=== PATIENT | male | born 1960 | race Caucasian/White ===

== ENCOUNTER 2019-12-18 10:06 | Emergency (ER) | payer OTHER, SELFPAY ==
--- NOTE | 2019-12-18 10:09 | ED.UPPEXIN ---
HPI - Extremity Injury (Upper) General Chief Complaint: Extremity Injury, Upper Stated Complaint: Suspects broken left wrist Time Seen by Provider: 12/18/19 10:08 Source: patient and family Mode of arrival: Ambulatory Limitations: no limitations History of Present Illness HPI narrative: 59-year-old male smoker with noncontributory medical history presents with his in the chief complaint of a fall on outstretched wrist yesterday with gradually worsening left wrist pain. He denies any head neck or back pain. He denies any other extremity pain. The primary location of his pain is overlying the proximal 5th metacarpal and carpals. He denies any numbness, tingling or weakness. His pain is worse with motion and improves with rest. MD complaint: injury to: left Onset (ago): hour(s) Other injuries: none Handedness: right Place: outdoors Severity: moderate Relieving factors: immobilization and rest Exacerbating factors: movement of extremity Context: fall and direct blow Associated symptoms: denies other symptoms Treatments prior to arrival: cold therapy and NSAIDS Related Data Home Medications Medication Instructions Recorded Confirmed No Known Home Medications 12/18/19 12/18/19 Allergies Allergy/AdvReac Type Severity Reaction Status Date / Time No Known Drug Allergies Allergy Verified 12/18/19 10:17 Review of Systems Constitutional Constitutional: Denies chills, Denies fatigue, Denies fever(s), Denies frequent falls, Denies lethargy and Denies weakness Eyes Eyes: Denies change in vision, Denies eye discharge, Denies irritation and Denies loss of vision ENT Ears, Nose, Mouth, and Throat: Denies change in voice, Denies dizziness, Denies neck pain, Denies sore throat and Denies throat swelling Cardiovascular Cardiovascular: Denies chest pain, Denies irregular heart rhythm, Denies lightheadedness, Denies palpitations, Denies dyspnea, Denies dyspnea on exertion and Denies orthopnea Respiratory Respiratory: Denies cough, Denies dyspnea, Denies dyspnea on exertion and Denies wheezing Gastrointestinal Gastrointestinal: Denies abdominal pain, Denies change in bowel habits, Denies diarrhea, Denies nausea and Denies vomiting Musculoskeletal Musculoskeletal: Reports arthralgias, Reports joint swelling, Denies neck pain and Denies numbness Integumentary/Breasts Skin/Breast: Denies pruritus, Denies erythema, Denies rash and Denies wounds Neurologic Neurologic: Denies behavioral changes, Denies confusion, Denies dizziness, Denies frequent falls, Denies loss of vision, Denies numbness and Denies weakness Psychiatric Psychiatric: Denies anxiety, Denies behavioral changes, Denies confusion, Denies depression, Denies homicidal ideation and Denies suicidal ideation Endocrine Endocrine: Denies fatigue, Denies flushing and Denies palpitations Hematologic/Lymphatic Hematologic/Lymphatic: Denies easy bruising Allergic/Immunologic Allergic/Immunologic: Denies urticaria, Denies throat swelling and Denies wheezing Patient History Social History Smoking Status: Former smoker Smoking Status: Current some day smoker tobacco type: cigarettes alcohol intake frequency: 0-2 drinks per day Substance Use Type: does not use Exam Narrative Exam Narrative: GEN: AOx3 and in mild distress EYES: Pupils are equal, round, and reactive to light and accommodation. Extraoccular muscles are intact bilaterally. There is no subconjunctival hemorrhage or exudate. CHEST: Lungs are clear to auscultation bilaterally and free of wheezes, rales, or rhonchi. Heart rate is regular rhythm, there are no murmurs, clicks, rubs, or gallops. There is no chest wall tenderness. ABD: Abdomen is soft and nontender. There is no guarding or rebound. Bowel sounds are normal in all 4 quadrants. There is no mass or organomegaly. EXT: Full but painful ROM of L wrist, mainly over distal ulna and medial hand. No obvious swelling or deformity. No numbness tingling or weakness. No pain in anatomic snuff box or pain with axial loading of thumb SKIN: Warm, pink, and dry. No erythema or rash Initial Vital Signs Initial Vital Signs: Vital Signs Temperature 96.7 F L 12/18/19 10:13 Pulse Rate 62 12/18/19 10:13 Respiratory Rate 18 12/18/19 10:13 Blood Pressure 139/81 12/18/19 10:13 Pulse Oximetry 96 12/18/19 10:13 Procedures Orthopedic Splinting/Casting Injury #1: Side: left Upper Extremity Injury Location: wrist Upper Extremity Immobilizer: volar splint Post splinting neuro exam: intact Post splinting vascular exam: intact Placed by: Nursing Course Orders Ordered: ED Orders 12/18/19 10:18 XR wrist LT min 3V Stat Consultations Consultation #1: case and images discussed with application operations engineer ortho (Jensen) she recommends premade velcro wrist splint and follow up. Vital Signs Vital signs: Vital Signs - 8 hr 12/18/19 10:13 12/18/19 11:49 Temperature 96.7 F L Pulse Rate 62 52 L Respiratory Rate 18 16 Blood Pressure 139/81 121/87 Pulse Oximetry 96 97 MDM - Extremity Injury (Upper) Imaging Data Extremity x-ray #1: Radiologist's Impression: Chart Viewer Diagnostics DATE TYPE STATUS REF RANGE/AUTHOR Hx 12/18/19 10:18 CasaJulian Jake Dan 59, M0 1960 [facility] ER, Main ED 182.88cm 100.698kg BMI: 30.1kg/m? Extremity Injury, Upper Search Chart No Data to Display ONSET Today 11:49 Jake Dan 59 M 1960 [place] [address] XRay Report Signed Patient: Jake Dan MMR#: [id number] : 1960Acct:[id number] Age/Sex: 59 / MDate of Service: 12/18/19 Loc: ED Accession Number: [id number] Procedure: XR wrist LT min 3V Ordering Provider: Kedar Mcgregor D.O. PROCEDURE: XR WRIST LT MIN 3V INDICATIONS: fell on outstretched arm TECHNIQUE: 4 views of the wrist were acquired. COMPARISON: None. FINDINGS: Bones: Question triquetral fracture seen on lateral view. No other fractures or dislocations. No suspicious bony lesions. Scaphoid view: Scaphoid intact. Soft tissues: No suspicious soft tissue calcifications. IMPRESSION: Question Margaret which will fracture. Suggest clinical correlation. Dictated by: Julian Cormier M.D. on 12/18/2019 at 9:38 Approved by: Julian Cormier M.D. on 12/18/2019 at 9:40 Discharge Plan Departure Patient Disposition: Home Clinical Impression: Fracture of triquetral bone of left wrist Qualifiers: Encounter type: initial encounter Fracture type: closed Fracture alignment: nondisplaced Qualified Code(s): S62.115A - Nondisplaced fracture of triquetrum [cuneiform] bone, left wrist, initial encounter for closed fracture Discharge Date/Time: 12/18/19 11:49 Instructions: DI for Wrist Fracture Activity Restrictions/Additional Instructions: *You have been diagnosed with [wrist pain with possible triquetral fracture] *What to do: *Take medications as directed *Follow up with [facility], call for an appointment. Let them know you were seen in the Emergency Department and that we ask that you be seen in follow up *Return to ER if you should have any new, worsening or concerning symptoms Splint Care: Keep splint clean and dry. Elevated affected body part to decrease swelling. OK to use ice pack on the affected body part. Use for 15-20 minutes each time, for 5-6x per day. If you develop worsening pain, numbness, tingling, discoloration of the affected body part, loosen the splint by loosening the OLEG wrap, and either see your doctor for an urgent re-assessment, or return to the Emergency Department. Return to the Emergency Department for any new or worsening symptoms. Prescriptions: No Action No Known Home Medications RF: 0 Referrals: Catherine Styles MD [Physician] -
[2019-12-18 10:13] VITALS: BP 139/81; PULSE 62; RESP 18; TEMP 35.9; O2SAT 96; BMI 30.1
--- NOTE | 2019-12-18 10:18 | DI.RAD.S_ITS ---
PROCEDURE: XR WRIST LT MIN 3V INDICATIONS: fell on outstretched arm TECHNIQUE: 4 views of the wrist were acquired. COMPARISON: None. FINDINGS: Bones: Question triquetral fracture seen on lateral view. No other fractures or dislocations. No suspicious bony lesions. Scaphoid view: Scaphoid intact. Soft tissues: No suspicious soft tissue calcifications. IMPRESSION: Question Margaret which will fracture. Suggest clinical correlation. Dictated by: Julian Cormier M.D. on 12/18/2019 at 9:38 Approved by: Julian Cormier M.D. on 12/18/2019 at 9:40
[2019-12-18 11:49] VITALS: BP 121/87; PULSE 52; RESP 16; O2SAT 97
== END 2019-12-18 11:49 | disposition home or self-care (01) ==
PROVIDERS: Emergency Provider Emergency Medicine
DX: S62.115A Nondisplaced fracture of triquetrum [cuneiform] bone, left wrist, initial encounter for closed fracture (principal); W19.XXXA Unspecified fall, initial encounter
CPT/HCPCS: 73110; 99282; 99283

== ENCOUNTER → 2021-07-06 08:09 | Outpatient (CLI) | payer OTHER, SELFPAY ==
[2021-07-06 08:48] LABS: Alanine Aminotransferase 41 IU/L (<50); Albumin 4.7 g/dL (3.5-5.0); Albumin Globulin Ratio 1.6 (1.0-2.8); Alkaline Phosphatase 66 U/L (38-126); Aspartate Aminotransferase 32 IU/L (17-59); BUN Creatinine Ratio 19.4 (6-22); Bilirubin Total 0.8 mg/dL (0.2-1.3); Blood Urea Nitrogen 19 mg/dL (9-20); Calcium 9.3 mg/dL (8.4-10.2); Carbon Dioxide 26 mmol/L (22-32); Chloride 107 mmol/L (98-107); Cholesterol 205 mg/dL (140-199); Estimated Glomerular Filt Rate > 60.0 mL/min (>60); Glucose 94 mg/dL (70-100); HDL Cholesterol 41 mg/dL (40-60); HEMOLYSIS 16 (0-50); LDL Cholesterol Calculated 139 mg/dL (<100); Potassium 4.4 mmol/L (3.4-5.1); Sodium 139 mmol/L (137-145); Total Protein 7.7 g/dL (6.3-8.2); Triglycerides 126 mg/dL (35-150)
[2021-07-06 09:17] LABS: Prostate Specific Antigen Scrn 0.999 ng/mL (0.1-4.0)
== END ==
PROVIDERS: PCP Internal Medicine; Referring Provider Internal Medicine; Visit Provider Internal Medicine
DX: Z00.00 Encounter for general adult medical examination without abnormal findings (principal); Z13.6 Encounter for screening for cardiovascular disorders; Z13.220 Encounter for screening for lipoid disorders; Z12.5 Encounter for screening for malignant neoplasm of prostate
CPT/HCPCS: 36415; 80053; 80061; G0103

== ENCOUNTER → 2023-09-09 06:56 | Outpatient (CLI) | payer OTHER, SELFPAY ==
[2023-09-09 08:21] LABS: Add Manual Diff / Slide Review NO; Basophils Absolute Auto 0 /uL (0-100); Basophils Percent Auto 0.8 % (0-2); Eosinophils Absolute Auto 100 /uL (0-450); Eosinophils Percent Auto 1.6 % (2-4); Hemoglobin 15.4 g/dL (13.5-17.5); Lymphocytes Absolute Auto 1400 /uL (1100-4500); Lymphocytes Percent Auto 29.5 % (25-40); Mean Corpuscular HGB Conc 34.2 % (30-36); Mean Corpuscular Volume 90.4 fL (80-100); Monocytes Absolute Auto 400 /uL (0-900); Monocytes Percent Auto 8.9 % (3-14); Neutrophils Absolute Auto 2800 /uL (1500-7000); Neutrophils Percent Auto 59.2 % (50-75); Platelet Count 147 X10^3/uL (150-400); Red Blood Cell Count 4.98 X10^6/uL (4.5-5.9); Red Cell Distribution Width 13.5 % (11.6-14.8); White Blood Cell Count 4.8 X10^3/uL (4.5-11.0)
[2023-09-09 08:50] LABS: Alanine Aminotransferase 30 IU/L (<50); Albumin 4.6 g/dL (3.5-5.0); Albumin Globulin Ratio 1.8 (1.0-2.8); Alkaline Phosphatase 81 U/L (38-126); Aspartate Aminotransferase 35 IU/L (17-59); BUN Creatinine Ratio 21.1 (6-22); Blood Urea Nitrogen 20 mg/dL (9-20); Calcium 9.3 mg/dL (8.4-10.2); Carbon Dioxide 25 mmol/L (22-32); Chloride 106 mmol/L (98-107); Cholesterol 202 mg/dL (140-199); Estimated Glomerular Filt Rate > 60 mL/min (>60); Globulin 2.6 g/dL (1.7-4.1); Glucose 94 mg/dL (80-110); HDL Cholesterol 53 mg/dL (40-60); HEMOLYSIS < 15 (0-50); LDL Cholesterol Calculated 131 mg/dL (<100); Potassium 4.4 mmol/L (3.4-5.1); Sodium 138 mmol/L (137-145); Total Protein 7.2 g/dL (6.3-8.2); Triglycerides 91 mg/dL (35-150)
[2023-09-09 09:13] LABS: Prostate Specific Antigen Scrn 1.01 ng/mL (0.1-4.0)
== END ==
LOC: LAB 06:56
PROVIDERS: PCP Internal Medicine; Referring Provider Internal Medicine; Visit Provider Internal Medicine
DX: D64.9 Anemia, unspecified (principal); Z13.6 Encounter for screening for cardiovascular disorders; Z13.1 Encounter for screening for diabetes mellitus; Z12.5 Encounter for screening for malignant neoplasm of prostate; Z13.220 Encounter for screening for lipoid disorders
CPT/HCPCS: 36415; 80053; 80061; 85025; G0103

== ENCOUNTER 2023-12-04 08:29 | Day surgery (SDC) | payer OTHER, SELFPAY ==
--- NOTE | 2023-12-04 | PATH_ITS ---
[facility] Accession Number: [id number] No. of containers..02 Tissue . 01 Material submitted: . PART A: colon - SPLENIC FLEXURE POLYP PART B: colon - SIGMOID COLON POLYP 40 CM . 01 Diagnosis: Part A: SPLENIC FLEXURE POLYP: Tubular adenoma. . Part B: SIGMOID COLON POLYP 40 CM: Tubulovillous adenoma. No high-grade dysplasia or malignancy identified. See comment. . Specimen Comments: There are features of trauma/prolapse of the polyp. Among the sample there is one fragment of nonadenomatous colonic mucosa, suggesting that the polyp may be completely excised. Correlation with the clinical endoscopic appearance before and after polypectomy is needed for further evaluation. [facility] 12/09/2023 1403 Local . 01 Electronically signed: . Alonzo Mora MD, Pathologist NPI- [id number] . 01 Gross description: . A. Received in formalin, labeled with two patient identifiers and splenic flexure, are three viveros soft tissue fragments measuring 0.6 -1.1 cm in greatest dimension. Submitted in cassette A1. . B. Received in formalin, labeled with two patient identifiers and sigmoid colon, are three viveros to brown soft tissue fragments, the largest measuring 2.5 x 1.7 x 1.9 cm. The fragment is inked blue, serially sectioned, and submitted entirely in cassettes B1-B4. The second fragment measures 1.1 x 0.7 x 0.8 cm. The fragment is inked blue, serially sectioned, and submitted entirely in in cassette B5. The last fragment measures 0.9 x 0.8 x 0.8 cm. The fragment is inked blue, trisected, and submitted entirely in cassette B6. ([id number]) /TWAN 12/09/2023 1403 Local . 01 Pathologist provided ICD-10: D12.3, D12.5 . 01 CPT . 026265, 764912 Specimen Comment: A courtesy copy of this report has been sent to [phone] Performed at: [address] [id number] MD Alonzo Mora MD Phone: [phone]
[2023-12-04 09:07] VITALS: BP 136/76; PULSE 51; RESP 16; TEMP 36.2; O2SAT 98
[2023-12-04] MEDS: LACTATED RINGERS 1,000 ML 42 ML IV (09:14)
--- NOTE | 2023-12-04 09:54 | PM.HP.1 ---
History of Present Illness History of Present Illness Date Patient Seen: 12/04/23 Time Patient Seen: 09:54 Chief complaint: [facility] Narrative: Colon cancer screening, last scope was 11 years ago. No current symptoms. PFSH Medical History COVID-19 Surgical History No pertinent past surgical history Family History Father Prostate cancer Social History Smoking Status: Never smoker Meds Home Medications and Allergies Allergies Allergy/AdvReac Type Severity Reaction Status Date / Time No Known Drug Allergies Allergy Verified 12/04/23 09:03 Review of Systems Review of Systems ROS: Yes All systems reviewed with the patient and are negative except as otherwise documented Exam Vital Signs (past 8 hours): - 12/04/23 09:07 Temperature 97.1 F L Pulse Rate 51 L Respiratory Rate 16 Blood Pressure 136/76 Pulse Oximetry 98 Oxygen Delivery Method Room Air Oxygen Delivery Method Room Air Const General: cooperative, healthy appearing and comfortable Nutritional Appearance: average body habitus HENMT Head: normocephalic and atraumatic Ears: hearing grossly normal bilaterally Eyes General: appearance normal, both eyes and all related structures Periorbital: periorbital findings normal Sclera: sclerae normal Neck Neck: trachea midline Resp Effort & Inspection: normal respiratory effort and able to speak in complete sentences Cardio Rate: regular rate Rhythm: regular rhythm GI Palpation: soft and No tender Skin General: elasticity normal and turgor normal Neuro General: patient alert, patient awake and patient oriented x3 Cognition: normal cognition Psych Mental Status: mental status grossly normal Judgment: judgment good Assessment & Plan Assessment & Plan narrative: colon cancer screening using colonoscopy with anesthesia. Time-Based Coding :: [TOTAL MINUTES] spent with patient and on the chart (including review of chart, obtaining history, exam, reviewing outside data, placing orders, documenting exam and treatment plan, and counseling patient) on [DATE].
--- NOTE | 2023-12-04 10:26 | PM.OP.COLON ---
Operative Date/Time/Diagnoses Date of procedure: 12/04/23 Time of procedure: 10:28 Pre-op diagnosis: Colon cancer screening Post-op diagnosis: same Procedure & Clinicians Study performed: Colonoscopy with hot snare polypectomy Same procedure as scheduled: Yes Indications: Colon cancer screening Surgeon: Mary Chappell Procedure Notes Procedure in detail: Preop diagnosis: Colon cancer screening Postop diagnosis: Same Operative procedure: Colonoscopy with hot snare polypectomy Surgeon: Marissa Chappell MD Anesthetic: Propofol Findings: Small diverticuli within the descending colon. Polyp at the splenic flexure approximately 5 mm. Second polyp on a long stalk at 40 cm in the descending colon measuring 2 cm. Procedure: Patient placed in a lateral position. Rectal exam performed showing normal tone no masses. Colonoscope inserted into the rectum and advanced to ileocecal valve with minimal difficulty. Insufflation extraction of the scope and the above findings. Retroflex was included in the rectum. Impression: Small diverticuli of the descending colon. 4 mm polyp at the splenic flexure and a 2 cm polyp in the descending colon at 40 cm. The larger polyp was on a long stalk so I have great confidence that the entire polyp is removed including a margin. Plan: Repeat colonoscopy in 5 years unless otherwise indicated by change in clinical condition. Findings: polyp(s) (splenic flexure 4mm polyp. At 40cm in sigmoid a 2cm polyp on stalk) Specimen(s): other (2 polyps) Complications: none Post-procedure Recommendations: Colonoscopy in 5 years Follow up: as needed Disposition: PACU
[2023-12-04 10:28] VITALS: BP 109/67; PULSE 47; RESP 20; TEMP 37.1; O2SAT 95
[2023-12-04 10:33] VITALS: BP 115/69; PULSE 45; RESP 15; O2SAT 93
[2023-12-04 10:40] VITALS: BP 112/68; PULSE 51; RESP 12; O2SAT 97
[2023-12-04 10:45] VITALS: BP 117/70; PULSE 45; RESP 20; TEMP 36.7; O2SAT 96
== END 2023-12-04 10:57 | disposition home or self-care (01) ==
PROVIDERS: PCP Internal Medicine; Referring Provider Surgery; Visit Provider Surgery
PROC: 0DJD8ZZ Inspection of Lower Intestinal Tract, Via Natural or Artificial Opening Endoscopic (ICD-10-PCS; CPT 45378; principal; 2023-12-04 09:45)
DX: Z12.11 Encounter for screening for malignant neoplasm of colon (principal); K57.30 Diverticulosis of large intestine without perforation or abscess without bleeding; K91.840 Postprocedural hemorrhage of a digestive system organ or structure following a digestive system procedure; R55 Syncope and collapse; R00.1 Bradycardia, unspecified
CPT/HCPCS: 45385; 80053; 83690; 85014; 85018; 85025; 85610; 85730; 86850; 86900; 86901; 93005; 99284; J2704

== ENCOUNTER 2023-12-04 21:06 | Observation (INO) | payer OTHER, SELFPAY ==
[2023-12-04] VITALS (19 sets, daily range): BP systolic 101–114; BP diastolic 55–70; PULSE 41–54; RESP 12–19; TEMP 35.7; O2SAT 94–98; BMI 32.5
--- NOTE | 2023-12-04 21:20 | ED.GENADULT ---
HPI - General Adult General Chief complaint: GI Bleed Stated complaint: LoC; Bloodloss after earlier colonoscopy Time Seen by Provider: 12/04/23 21:16 Source: patient and family Mode of arrival: EMS Limitations: no limitations History of Present Illness HPI narrative: Patient is a 63-year-old male. States that earlier today he underwent a colonoscopy. According to the medical record he would 2 polyp biopsies. He states that he was at home this evening. Had a couple episodes of bright red blood per rectum. No abdominal pain. No chest pain. No shortness of breath. Afterwards he had an episode where he became very lightheaded. Potentially even had a syncopal episode after going to the bathroom. Patient then became diaphoretic. Denies any urinary symptoms. He has not on blood thinners. Takes no medications on a regular basis. Related Data Allergies Allergy/AdvReac Type Severity Reaction Status Date / Time No Known Drug Allergies Allergy Verified 12/04/23 09:03 Review of Systems Review of Systems ROS Unobtainable: All systems reviewed & are unremarkable except as noted in HPI and below Patient History Medical History COVID-19 Surgical History No pertinent past surgical history Family History Father Prostate cancer Social History Smoking Status: Never smoker Smoking Status: Never smoker tobacco type: cigarettes alcohol intake frequency: 0-2 drinks per day Substance Use Type: does not use Exam Initial Vital Signs Initial Vital Signs: Vital Signs Temperature 96.3 F L 12/04/23 21:10 Pulse Rate 47 L 12/04/23 21:10 Respiratory Rate 14 12/04/23 21:10 Blood Pressure 108/63 12/04/23 21:10 Pulse Oximetry 96 12/04/23 21:10 Oxygen Delivery Method Room Air 12/04/23 21:10 Const General: cooperative and diaphoretic HENMT Head: normal to inspection and normocephalic Resp Effort & Inspection: normal respiratory effort Auscultation: clear to auscultation bilaterally Cardio Rate: bradycardic Rhythm: regular rhythm GI Inspection: normal to inspection and non-distended Palpation: soft and No tender Skin General: no rashes or lesions noted Neuro General: patient alert, patient awake, patient oriented x3 and moves all extremities Extrem General: capillary refill normal Scores GCS Avni coma scale eye opening: Spontaneous Avni coma scale verbal response: Orientated Avni coma scale motor response: Obey commands [place] coma scale total score: 15 Course Orders Ordered: ED Orders 12/04/23 21:17 EKG-12 Lead Stat 12/04/23 21:30 Complete Blood Count AUTO DIFF Stat 12/04/23 21:36 Comprehensive Metabolic Panel Stat Lipase Stat PTT Partial Thromboplastin Cesar Stat Prothrombin Time INR Stat Type and Screen Stat 12/04/23 23:40 Hemoglobin and Hematocrit Stat 12/05/23 01:05 Education, smoking cessation ONGOING 12/05/23 01:15 Complete Blood Count AUTO DIFF Q6H 12/05/23 07:15 Complete Blood Count AUTO DIFF Q6H 12/05/23 13:15 Complete Blood Count AUTO DIFF Q6H 12/05/23 19:15 Complete Blood Count AUTO DIFF Q6H Acetaminophen (Acetaminophen 325 Mg Tablet) 650 mg PO Q6H PRN PRN Reason: Fever/Mild Pain (1-3) Sodium Chloride (Normal Saline 0.9%) 1,000 mls @ 100 mls/hr IV CONT FRANCISCA Last Admin: 12/05/23 01:04 Dose: 100 mls/hr Documented By: CATA Lactated Ringer's (Lactated Ringers) 1,000 mls @ 100 mls/hr IV CONT FRANCISCA Ibuprofen (Ibuprofen 600 Mg Tablet) 600 mg PO Q6H PRN PRN Reason: Fever/Mild Pain (1-3) Naloxone HCl (Naloxone 0.4 Mg/Ml Vial) 0.2 mg IV Q2MIN PRN PRN Reason: Opiate Reversal Discontinued Medications Sodium Chloride (Normal Saline 0.9%) 1,000 mls @ 1,000 mls/hr IV BOLUS ONE Stop: 12/04/23 22:15 Last Infusion: 12/04/23 23:19 Dose: Infused Documented By: Admin: 12/04/23 21:50 Dose: 1,000 mls/hr Documented By: KELSIE Vital Signs Vital signs: Vital Signs - 8 hr 12/04/23 21:10 12/04/23 21:16 12/04/23 21:21 Temperature 96.3 F L Pulse Rate 47 L 42 L Respiratory Rate 14 Blood Pressure 108/63 105/70 Pulse Oximetry 96 96 Oxygen Delivery Method Room Air 12/04/23 21:21 12/04/23 21:29 12/04/23 21:29 Temperature Pulse Rate 41 L 42 L Respiratory Rate 12 13 Blood Pressure 101/67 Pulse Oximetry 98 97 Oxygen Delivery Method 12/04/23 21:30 12/04/23 21:30 12/04/23 21:40 Temperature Pulse Rate 41 L Respiratory Rate 12 Blood Pressure 102/62 107/66 Pulse Oximetry 97 Oxygen Delivery Method 12/04/23 21:40 12/04/23 21:50 12/04/23 21:50 Temperature Pulse Rate 43 L 43 L Respiratory Rate 17 16 Blood Pressure 103/64 Pulse Oximetry 96 97 Oxygen Delivery Method 12/04/23 22:00 12/04/23 22:00 12/04/23 22:10 Temperature Pulse Rate 45 L Respiratory Rate 15 Blood Pressure 107/67 111/62 Pulse Oximetry 98 Oxygen Delivery Method Room Air 12/04/23 22:10 12/04/23 22:20 12/04/23 22:20 Temperature Pulse Rate 44 L 46 L Respiratory Rate 12 17 Blood Pressure 111/63 Pulse Oximetry 98 94 Oxygen Delivery Method Room Air 12/04/23 22:30 12/04/23 22:30 12/04/23 22:40 Temperature Pulse Rate 47 L Respiratory Rate 17 Blood Pressure 102/55 L 104/64 Pulse Oximetry 96 Oxygen Delivery Method 12/04/23 22:40 12/04/23 22:50 12/04/23 22:50 Temperature Pulse Rate 48 L 48 L Respiratory Rate 18 16 Blood Pressure 114/63 Pulse Oximetry 96 95 Oxygen Delivery Method 12/04/23 23:00 12/04/23 23:00 12/04/23 23:10 Temperature Pulse Rate 47 L 54 L Respiratory Rate 14 19 Blood Pressure 112/61 Pulse Oximetry 95 94 Oxygen Delivery Method 12/04/23 23:10 12/04/23 23:20 12/04/23 23:20 Temperature Pulse Rate 48 L Respiratory Rate 18 Blood Pressure 109/59 L 113/58 L Pulse Oximetry 95 Oxygen Delivery Method 12/04/23 23:30 12/04/23 23:30 12/04/23 23:40 Temperature Pulse Rate 48 L Respiratory Rate 15 Blood Pressure 113/61 112/58 L Pulse Oximetry 96 Oxygen Delivery Method 12/04/23 23:40 12/04/23 23:50 12/04/23 23:50 Temperature Pulse Rate 47 L 48 L Respiratory Rate 15 16 Blood Pressure 110/56 L Pulse Oximetry 96 95 Oxygen Delivery Method 12/05/23 00:00 12/05/23 00:00 12/05/23 00:01 Temperature Pulse Rate 50 L 48 L Respiratory Rate 17 19 Blood Pressure 92/53 L Pulse Oximetry 96 96 Oxygen Delivery Method 12/05/23 00:01 12/05/23 00:10 12/05/23 00:10 Temperature Pulse Rate 47 L Respiratory Rate 15 Blood Pressure 93/54 L 95/59 L Pulse Oximetry 96 Oxygen Delivery Method 12/05/23 00:20 12/05/23 00:20 12/05/23 01:00 Temperature Pulse Rate 49 L 42 L Respiratory Rate 14 15 Blood Pressure 95/58 L 122/60 Pulse Oximetry 97 93 Oxygen Delivery Method Medical Decision Making Medical Records Medical records reviewed: Yes I reviewed the patient's medical records. Lab Data Lab results reviewed: Yes I reviewed the patient's lab results. 12/04/23 23:40 12/04/23 21:36 Labs: Lab Results 12/04/23 12/04/23 12/04/23 Range/Units 21:30 21:36 23:40 WBC 5.0 (4.5-11.0) X10^3/uL RBC 4.07 L (4.5-5.9) X10^6/uL Hgb 12.6 L 11.5 L (13.5-17.5) g/dL Hct 37.6 L 33.5 L (41-53) % MCV 92.4 (80-100) fL MCH 31.0 (26-34) PG MCHC 33.6 (30-36) % RDW 13.7 (11.6-14.8) % Plt Count 141 L (150-400) X10^3/uL Neut % (Auto) 52.4 (50-75) % Lymph % (Auto) 37.0 (25-40) % [place] % (Auto) 7.9 (3-14) % Eos % (Auto) 1.8 L (2-4) % Baso % (Auto) 0.9 (0-2) % Neut # (Auto) 2600 (2758-3623) /uL Lymph # (Auto) 1900 (5902-9239) /uL [place] # (Auto) 400 (0-900) /uL Eos # (Auto) 100 (0-450) /uL Baso # (Auto) 0 (0-100) /uL PT 11.9 (9.4-12.5) SECONDS INR 1.0 (0.9-1.3) APTT 28 (25.1-36.5) SECONDS Sodium 133 L (137-145) mmol/L Potassium 3.7 (3.4-5.1) mmol/L Chloride 104 (98-107) mmol/L Carbon Dioxide 21 L (22-32) mmol/L BUN 21 H (9-20) mg/dL Creatinine 1.07 (0.66-1.25) mg/dL Estimated GFR > 60 (>60) mL/min BUN/Creatinine Ratio 19.6 (6-22) Glucose 131 H (80-110) mg/dL Calcium 8.4 (8.4-10.2) mg/dL Total Bilirubin 0.6 (0.2-1.3) mg/dL AST 27 (17-59) IU/L ALT 28 (<50) IU/L Alkaline Phosphatase 67 (38-126) U/L Total Protein 6.5 (6.3-8.2) g/dL Albumin 3.8 (3.5-5.0) g/dL Globulin 2.7 (1.7-4.1) g/dL Albumin/Globulin Ratio 1.4 (1.0-2.8) Lipase 53 (23-300) U/L Blood Type O Positive Antibody Screen Negative ECG Data Attestation: I personally reviewed and interpreted this ECG as follows: Interpretation: Sinus bradycardia Ventricular rate of 43 Normal QRS Normal QTC No ST T wave changes MDM Narrative Medical decision making narrative: Patient is bradycardic but he states that he was always bradycardic specifically with resting. His heart rate is normally in the 40s to low 50s. He denies any abdominal pain. No chest pain or shortness of breath. Initial H&H is relatively unremarkable. He did receive some fluids in his repeat H and H of somewhat lower but he has had no repeat bowel movements here in the ER. He stated that he was feeling much better than what he did earlier today. He did get somewhat lightheaded when he stood up next to the bed but this resolved very quickly. Initial plan was to discharge the patient home. Patient was actually discharged however he was using the restroom prior to leaving the emergency department when he had another syncopal episode. Patient remains bradycardic. Suspect that his symptoms are related to his prior surgeries/blood loss. He was typed and screened. Discussed the case with Dr. Chappell who is on-call for General surgery who is also the patient's provider who did the colonoscopy earlier today. Plan will be is to admit for observation. Discussed the need for admission with the patient. Both he and his expressed understanding and agreement with plan. Discharge Plan Departure Patient Disposition: Admitted As Inpatient Clinical Impression: Rectal bleeding Admit Date/Time: 12/05/23 01:17 Admit Provider: Mary Chappell
[2023-12-04 21:39] LABS: Add Manual Diff / Slide Review NO; Basophils Absolute Auto 0 /uL (0-100); Basophils Percent Auto 0.9 % (0-2); Eosinophils Absolute Auto 100 /uL (0-450); Eosinophils Percent Auto 1.8 % (2-4); Hematocrit 37.6 % (41-53); Hemoglobin 12.6 g/dL (13.5-17.5); Lymphocytes Absolute Auto 1900 /uL (1100-4500); Mean Corpuscular HGB Conc 33.6 % (30-36); Mean Corpuscular Volume 92.4 fL (80-100); Monocytes Absolute Auto 400 /uL (0-900); Monocytes Percent Auto 7.9 % (3-14); Neutrophils Absolute Auto 2600 /uL (1500-7000); Neutrophils Percent Auto 52.4 % (50-75); Platelet Count 141 X10^3/uL (150-400); Red Blood Cell Count 4.07 X10^6/uL (4.5-5.9); Red Cell Distribution Width 13.7 % (11.6-14.8)
[2023-12-04] MEDS: SODIUM CHLORIDE 0.9% 1,000 ML 1000 ML IV (21:50)
[2023-12-04 21:54] LABS: Prothrombin Time 11.9 SECONDS (9.4-12.5)
[2023-12-04 21:57] LABS: PTT Partial Thromboplastin Tim 28 SECONDS (25.1-36.5)
[2023-12-04 21:58] LABS: Alanine Aminotransferase 28 IU/L (<50); Albumin 3.8 g/dL (3.5-5.0); Albumin Globulin Ratio 1.4 (1.0-2.8); Alkaline Phosphatase 67 U/L (38-126); Aspartate Aminotransferase 27 IU/L (17-59); BUN Creatinine Ratio 19.6 (6-22); Bilirubin Total 0.6 mg/dL (0.2-1.3); Blood Urea Nitrogen 21 mg/dL (9-20); Calcium 8.4 mg/dL (8.4-10.2); Carbon Dioxide 21 mmol/L (22-32); Chloride 104 mmol/L (98-107); Estimated Glomerular Filt Rate > 60 mL/min (>60); Globulin 2.7 g/dL (1.7-4.1); Glucose 131 mg/dL (80-110); HEMOLYSIS < 15 (0-50); Lipase 53 U/L (23-300); Potassium 3.7 mmol/L (3.4-5.1); Sodium 133 mmol/L (137-145); Total Protein 6.5 g/dL (6.3-8.2)
--- NOTE | 2023-12-04 22:08 | EKG_ITS ---
[facility] [address] [address] Test Date: 2023-12-04 Pat Name: Jake Dan Department: [facility] Room: Gender: Male Configuration Management Analyst: : 1960 Requested By: Order Number: [id number] Reading MD: Angel Santiago MD Measurements Intervals [place] Rate: 43 P: 41 NM: 186 QRS: 18 QRSD: 90 T: 27 QT: 472 QTc: 398 Interpretive Statements Marked sinus bradycardia Electronically Signed On 12-09-2023 8:32:22 PDT by Angel Santiago MD
[2023-12-04 23:44] LABS: Hematocrit 33.5 % (41-53); Hemoglobin 11.5 g/dL (13.5-17.5)
[2023-12-05] VITALS (11 sets, daily range): BP systolic 92–128; BP diastolic 53–64; PULSE 42–74; RESP 14–19; TEMP 35.9–36.6; O2SAT 92–98; BMI 32.5
--- NOTE | 2023-12-05 00:40 | PC.NURSE ---
Pt had been discharged from the department. Pt went to bathroom before exiting the department. in bathroom, pt became pale and diaphoretic, pt hadn't even gotten to the toilet but was sitting in a wheel chair. pt started dry heaving and then appeared to have passed out. Eyes rolled back into head and pt did not respond, when eyes went straight, pt with no focus to eyes. Moved back to room, not allowing him to use restroom.
[2023-12-05] MEDS: SODIUM CHLORIDE 0.9% 1,000 ML 100 ML IV (01:04)
[2023-12-05 02:29] LABS: Add Manual Diff / Slide Review NO; Basophils Absolute Auto 0 /uL (0-100); Basophils Percent Auto 0.7 % (0-2); Eosinophils Absolute Auto 0 /uL (0-450); Eosinophils Percent Auto 0.6 % (2-4); Hematocrit 32.8 % (41-53); Hemoglobin 11.3 g/dL (13.5-17.5); Lymphocytes Absolute Auto 900 /uL (1100-4500); Lymphocytes Percent Auto 16.3 % (25-40); Mean Corpuscular HGB Conc 34.5 % (30-36); Mean Corpuscular Hemoglobin 31.3 PG (26-34); Mean Corpuscular Volume 90.6 fL (80-100); Monocytes Absolute Auto 200 /uL (0-900); Monocytes Percent Auto 4.3 % (3-14); Neutrophils Absolute Auto 4300 /uL (1500-7000); Neutrophils Percent Auto 78.1 % (50-75); Platelet Count 119 X10^3/uL (150-400); Red Blood Cell Count 3.62 X10^6/uL (4.5-5.9); Red Cell Distribution Width 13.7 % (11.6-14.8); White Blood Cell Count 5.5 X10^3/uL (4.5-11.0)
[2023-12-05] MEDS: LACTATED RINGERS 1,000 ML 100 ML IV (02:35)
[2023-12-05 07:38] LABS: Add Manual Diff / Slide Review NO; Basophils Absolute Auto 0 /uL (0-100); Basophils Percent Auto 0.7 % (0-2); Eosinophils Absolute Auto 0 /uL (0-450); Hematocrit 32.4 % (41-53); Hemoglobin 11.2 g/dL (13.5-17.5); Lymphocytes Absolute Auto 1200 /uL (1100-4500); Lymphocytes Percent Auto 24.4 % (25-40); Mean Corpuscular HGB Conc 34.5 % (30-36); Mean Corpuscular Hemoglobin 31.3 PG (26-34); Mean Corpuscular Volume 90.7 fL (80-100); Monocytes Absolute Auto 300 /uL (0-900); Monocytes Percent Auto 6.6 % (3-14); Neutrophils Absolute Auto 3200 /uL (1500-7000); Neutrophils Percent Auto 67.3 % (50-75); Platelet Count 122 X10^3/uL (150-400); Red Blood Cell Count 3.57 X10^6/uL (4.5-5.9); Red Cell Distribution Width 13.6 % (11.6-14.8); White Blood Cell Count 4.7 X10^3/uL (4.5-11.0)
--- NOTE | 2023-12-05 12:33 | P.DS_ITS ---
History of Present Illness History of Present Illness Chief complaint: LoC; Bloodloss after earlier colonoscopy Discharge Providers Provider Date of admission: 12/05/23 01:17 Discharge Date: 12/05/23 Primary care physician: Angel Santiago MD Discharge provider: Sorin Qureshi MD Summary Hospital Course Discharge Diagnosis: The patient was admitted for hematochezia following a colonoscopy. His hemoglobin dropped from 12.6 to 11.5 then remained stable over the next 12 hours. On his second hospital day he was able to walk without dizziness or shortness of breath. He was discharged home. Exam Vital Signs (past 8 hours): - 12/05/23 05:05 12/05/23 08:00 12/05/23 12:00 Temperature 96.9 F L 97.4 F L 97.8 F Pulse Rate 48 L 55 L 74 Respiratory Rate 16 16 16 Blood Pressure 105/54 L 111/61 109/62 Pulse Oximetry 92 98 97 Oxygen Flow Rate 0 Oxygen Delivery Method Room Air Oxygen Flow Rate 0 Objective Labs 12/05/23 07:30 12/04/23 21:36 Labs: Laboratory Results - last 24 hr 12/04/23 12/04/23 12/04/23 21:30 21:36 23:40 WBC 5.0 RBC 4.07 L Hgb 12.6 L 11.5 L Hct 37.6 L 33.5 L MCV 92.4 MCH 31.0 MCHC 33.6 RDW 13.7 Plt Count 141 L Neut % (Auto) 52.4 Lymph % (Auto) 37.0 [place] % (Auto) 7.9 Eos % (Auto) 1.8 L Baso % (Auto) 0.9 Neut # (Auto) 2600 Lymph # (Auto) 1900 [place] # (Auto) 400 Eos # (Auto) 100 Baso # (Auto) 0 PT 11.9 INR 1.0 APTT 28 Sodium 133 L Potassium 3.7 Chloride 104 Carbon Dioxide 21 L BUN 21 H Creatinine 1.07 Estimated GFR > 60 BUN/Creatinine Ratio 19.6 Glucose 131 H Calcium 8.4 Total Bilirubin 0.6 AST 27 ALT 28 Alkaline Phosphatase 67 Total Protein 6.5 Albumin 3.8 Globulin 2.7 Albumin/Globulin Ratio 1.4 Lipase 53 Blood Type O Positive Antibody Screen Negative 12/05/23 12/05/23 02:20 07:30 WBC 5.5 4.7 RBC 3.62 L 3.57 L Hgb 11.3 L 11.2 L Hct 32.8 L 32.4 L MCV 90.6 90.7 MCH 31.3 31.3 MCHC 34.5 34.5 RDW 13.7 13.6 Plt Count 119 L 122 L Neut % (Auto) 78.1 H D 67.3 Lymph % (Auto) 16.3 L D 24.4 L [place] % (Auto) 4.3 6.6 Eos % (Auto) 0.6 L 1.0 L Baso % (Auto) 0.7 0.7 Neut # (Auto) 4300 3200 Lymph # (Auto) 900 L 1200 [place] # (Auto) 200 300 Eos # (Auto) 0 0 Baso # (Auto) 0 0 PT INR APTT Sodium Potassium Chloride Carbon Dioxide BUN Creatinine Estimated GFR BUN/Creatinine Ratio Glucose Calcium Total Bilirubin AST ALT Alkaline Phosphatase Total Protein Albumin Globulin Albumin/Globulin Ratio Lipase Blood Type Antibody Screen PFS Medical History COVID-19 Surgical History No pertinent past surgical history Family History Father Prostate cancer Social History household members: spouse Smoking Status: Never smoker Discharge Plan Discharge Plan Patient Disposition: Home Discharge orders & Medications Prescriptions: No Action No Known Home Medications Follow up/Referrals: Angel Santiago MD [Primary Care Provider] - Visit Report/Discharge Packet Instructions: Gastrointestinal Bleeding Stand Alone Forms: Patient Portal/API, Stroke Signs & Symptoms Discharge Data Primary Care Provider: Angel Santiago Attending Provider: Mary Chappell Admstephane Date/Time: 12/05/23 01:17
== END 2023-12-05 13:32 | disposition home or self-care (01) ==
LOC: ED 12-05 00:57 → AC 12-05 01:17
PROVIDERS: Admitting Provider Surgery; Emergency Provider Emergency Medicine; PCP Internal Medicine; Visit Provider Surgery
DX: K91.840 Postprocedural hemorrhage of a digestive system organ or structure following a digestive system procedure (principal); R55 Syncope and collapse; R00.1 Bradycardia, unspecified
CPT/HCPCS: 36415; 80053; 83690; 85014; 85018; 85025; 85610; 85730; 86850; 86900; 86901; 93005; 99284; G0378

== ENCOUNTER → 2024-09-13 06:57 | Outpatient (CLI) | payer OTHER, SELFPAY ==
[2023-12-05 02:42] VITALS: BMI 32.5
[2024-09-13 07:51] LABS: Add Manual Diff / Slide Review NO; Basophils Absolute Auto 0 /uL (0-100); Eosinophils Absolute Auto 100 /uL (0-450); Eosinophils Percent Auto 2.8 % (2-4); Hematocrit 45.1 % (41-53); Hemoglobin 15.7 g/dL (13.5-17.5); Lymphocytes Absolute Auto 1500 /uL (1100-4500); Lymphocytes Percent Auto 38.3 % (25-40); Mean Corpuscular HGB Conc 34.8 % (30-36); Mean Corpuscular Hemoglobin 31.3 PG (26-34); Mean Corpuscular Volume 90.1 fL (80-100); Monocytes Absolute Auto 400 /uL (0-900); Monocytes Percent Auto 9.9 % (3-14); Neutrophils Absolute Auto 1800 /uL (1500-7000); Platelet Count 140 X10^3/uL (150-400); Red Blood Cell Count 5.01 X10^6/uL (4.5-5.9); Red Cell Distribution Width 13.1 % (11.6-14.8); White Blood Cell Count 3.8 X10^3/uL (4.5-11.0)
[2024-09-13 08:08] LABS: Alanine Aminotransferase 36 IU/L (<50); Albumin 4.5 g/dL (3.5-5.0); Albumin Globulin Ratio 1.7 (1.0-2.8); Alkaline Phosphatase 96 U/L (38-126); Aspartate Aminotransferase 41 IU/L (17-59); Bilirubin Total 0.8 mg/dL (0.2-1.3); Blood Urea Nitrogen 19 mg/dL (9-20); Calcium 9.3 mg/dL (8.4-10.2); Carbon Dioxide 23 mmol/L (22-32); Chloride 105 mmol/L (98-107); Cholesterol 181 mg/dL (140-199); Estimated Glomerular Filt Rate > 60 mL/min (>60); Globulin 2.7 g/dL (1.7-4.1); Glucose 100 mg/dL (70-99); HDL Cholesterol 35 mg/dL (40-60); HEMOLYSIS < 15 (0-50); LDL Cholesterol Calculated 100 mg/dL (<100); Potassium 4.1 mmol/L (3.4-5.1); Sodium 138 mmol/L (137-145); Total Protein 7.2 g/dL (6.3-8.2); Triglycerides 229 mg/dL (35-150)
[2024-09-13 08:38] LABS: Prostate Specific Antigen Scrn 0.948 ng/mL (0.1-4.0)
== END ==
LOC: LAB 06:57
PROVIDERS: PCP Internal Medicine; Referring Provider Internal Medicine; Visit Provider Internal Medicine
DX: Z12.5 Encounter for screening for malignant neoplasm of prostate (principal); K62.5 Hemorrhage of anus and rectum; D64.9 Anemia, unspecified; E78.5 Hyperlipidemia, unspecified
CPT/HCPCS: 36415; 80053; 80061; 85025; G0103